=== PATIENT | female | born 1995 | race African-American/Black ===

== ENCOUNTER 2025-04-12 21:39 | Emergency (ER) | payer SELFPAY ==
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
--- NOTE | ~2025-04-12 | US_ITS ---
CLINICAL HISTORY: about 6 weeks preg, quant in the 300 range, ? ecto US OB 1st Trimester transabdominal and transvaginal Comparison: None provided Findings: Small fluid collection is present within the fundal endometrium. Endometrial stripe is thickened up to 3.1 cm. No intrauterine gestational sac identified at this time. Small cyst is in the posterior myometrium measuring up to 7 mm. Isoechoic mass with peripheral vascularity in the left ovary measures 2 x 1.6 x 1.6 cm. Right ovary is 2.3 x 1.6 x 1.4 cm. Left ovary is 3.2 x 3 x 2.9 cm. Free fluid is in the cul-de-sac and bilateral adnexal regions. IMPRESSION: No intrauterine gestational sac identified at this time, consistent with of uncertain location. Recommend close clinical and ultrasound follow-up with monitoring of serial quantitative beta hCG. Trace fluid collection in the fundal endometrial stripe. No yolk sac identified at this time to confirm gestational sac. Isoechoic left ovarian mass, possibly complicated involuting cyst. Recommend attention to this finding on follow-up. Mild free fluid in the adnexal regions and cul-de-sac. This document has been electronically signed by: Henry Alonso MD, PHD on 04/13/2025 03:25:38
[2025-04-12 21:41] VITALS: BP 130/59; PULSE 83; RESP 20; TEMP 36.3; O2SAT 99; BMI 35.3
--- OUTSIDE RECORDS SUMMARY | 2025-04-12 22:02 | XMS_ITS | Clinical Summary ---
Author Organization [facility] Address [address] [address] Phone Care Team Providers Care Afterschool Babysitter Name Role Phone Unknown, Unknown Primary Care Provider Unavai lable Allergies Active Allergy Reactions Criticality Noted Date Comments Ibuprofen Shortness Of Breath, Nausea and/or Vomiting High 12/23/2023 Social History Tobacco Use Types Packs/Day Years Used Date Smoking Tobacco: Never Smokeless Tobacco: Never Tobacco Cessation:Counseling Given: Not Answered Alcohol Use Standard Drinks/Week Comments Not Currently 0 (1 standard drink = 0.6 oz pur e alcohol) Education Answer Date Recorded Are you interested in more education? Not on gomez e 12/23/2023 Are you concerned about learning? Not on file 12/23/2023 No 12/23/2023 No 12/23/2023 Digital Access Answer Date Recorded No 12/23/2023 No 12/23/2023 Reliable internet access at home? Not on file 12/23/2023 Device with a working camera? Not on file Intimate Partner Violence Answer Date R ecorded Are you denied basic needs s uch as food, clothing, or medical care? No 12/23/2023 In the past 12 months have y ou been in a relationship with a person who hurts, threatens, or tries to control you? No 12/23/2023 Are you denied basic needs s uch as food, clothing, or medical care? No 12/23/2023 In the past 12 months have y ou been in a relationship with a person who hurts, threatens, or tries to control you? No 12/23/2023 Comments Unknown Sex and Gender Information Value Date Recorded Sex Assigned at Not on file Legal Sex Female 1:25 AM EDT Gender Identity Not on file Sexual Orientation Not on file Last Filed Vital Signs Vital Sign Reading Time Taken Comments Blood Pressure 95/58 12/23/2023 1:56 PM EDT Pulse 72 12/23/2023 1:56 PM EDT Temperature 36.7 C (98 F) 12/23/2023 4:58 AM EDT Respiratory Rate 18 12/23/2023 1:56 PM EDT Oxygen Saturation 98% 12/23/2023 1:56 PM EDT Inhaled Oxygen Concentration - - Weight - - Height - - Body Mass Index - - Plan of Treatment Health Maintenance Due Date Last Done Comments Adult Td,Tdap Booster 1994 DEPRESSION SCREENING 2006 HEPATITIS C SCREENING 2012 HIV ONE-TIME SCREENING (18-6 5 YEARS) 2012 PAP SMEAR 2015 COVID-19 VACCINE (2023-2 5 season) 2024 SMOKING STATUS SCREENING (On ce After 26 Yrs) Completed 12/23/2023 HEPATITIS A VACCINES Aged Out No long er eligible based on patient's age to complete this topic HIB VACCINES Aged Out No longer eligi ble based on patient's age to complete this topic MENINGOCOCCAL VACCINES (ACWY) Aged Out No longer eligible based on patient's age to complete this topic MENINGOCOCCAL VACCINES (B) Aged Out N o longer eligible based on patient's age to complete this topic PNEUMOCOCCAL VACCINES (0-49 years) Aged Out No longer eligible based on patient's age to complete this topic Medical Devices Not on file Care Teams Afterschool Babysitter Relationship Specialty Start Date End Date Unknown, Unknown, PCP - General 12/22/23 Additional Source Comments The information contained in this document represents components of the legal health record. It is not the complete legal health record.[facility]
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
--- OUTSIDE RECORDS SUMMARY | 2025-04-12 22:02 | XMS_ITS | Encounter Summary ---
Author Organization [facility] Address [address] [address] Phone Care Team Providers Care Child Care Worker Name Role Phone Unknown, Unknown Primary Care Provider Susanne villatoro Encounter Details Date Type Department Care Team (Late st Contact Info) Description 12/23/2023 Procedure [place] [facility] [place] [facility] [address] [place] [address] Social History Tobacco Use Types Packs/Day Years Used Date Smoking Tobacco: Never Smokeless Tobacco: Never Alcohol Use Standard Drinks/Week Comments Not Currently [...] on file Sexual Orientation Not on file documented as of this encounter Plan of Treatment Not on file documented as of this encounter Visit Diagnoses Not on filedocumented in this encounter Care Teams Child Care Worker Relationship Specialty Start Date End Date Unknown, Unknown, PCP - General 12/22/23 documented as of this encounter Additional Source Comments The information contained in this document represents components of the legal health record. It is not the complete legal health record.[facility]
[2025-04-12 22:04] LABS: MANUAL DIFF FLAG NO
[2025-04-12 22:09] LABS: Hematocrit 41.3 % (37.0-47.0); Hemoglobin 14.7 g/dl (12.0-16.0); Imm Gran Abs Auto 0.02 X10*3/uL (0.00-0.03); Imm Gran Pct Auto 0.3 % (0.0-0.4); Lymphocytes Absolute Auto 2.6 X10*3/uL (1.2-4.9); Mean Corpuscular HGB Conc 35.6 g/dl (31.0-35.0); Mean Corpuscular Hemoglobin 30.9 pg (27.0-33.0); Mean Corpuscular Volume 86.9 fL (80.0-98.0); NRBC Abs Auto 0.000 X10*3/uL (0.0-0.012); NRBC Pct Auto 0.0 /100WBC (0.0-0.2); Platelet Count 243 X10*3/uL (160-400); Red Blood Count 4.75 X10*6/uL (4.20-5.50); White Blood Count 6.2 X10*3/uL (4.8-10.8)
[2025-04-12 22:25] LABS: Alanine Aminotransferase 8 U/L (0-31); Albumin Level 3.8 g/dL (3.5-5.0); Alkaline Phosphatase 42 U/L (39-117); Anion Gap 11 (12-20); Aspartate Amino Transferase 24 U/L (5-31); Blood Urea Nitrogen 22 mg/dL (9-16); Calcium 8.7 mg/dL (8.4-10.2); Carbon Dioxide 23 mmol/L (22-29); Chloride 109 mmol/L (96-108); Creatinine Clr Calc Pharmacy 91.4; Estimated Glomerular Filt Rate > 60; Lipase 26 U/L (8-78); Potassium 3.6 mmol/L (3.3-5.1); Sodium 139 mmol/L (135-145); Total Protein 6.0 g/dL (6.5-8.0)
[2025-04-12 22:27] LABS: Troponin-I High Sensitivity < 2.7 ng/L (<3.5-17.0)
[2025-04-12 23:01] LABS: COVID-19 Test Negative (Negative); IDNOW Serial# 58CA691E
[2025-04-12 23:02] LABS: IDNOW Serial# 55D5AD1C; Influenza B2 Negative (Negative)
[2025-04-12 23:49] VITALS: BP 108/63; PULSE 91; RESP 16; TEMP 36.4; O2SAT 100
[2025-04-13 00:34] LABS: Appearance Urine Cloudy; Glucose Urine UA Negative (Negative); PH 5.5 (5.0-9.0); Specific Gravity - Urine >= 1.030 (1.005-1.025); UMIC TRIGGER UA YES
--- NOTE | 2025-04-13 00:41 | ED.GENADULT ---
HPI - General Adult General Chief complaint: Nausea/Vomiting/Diarrhea Stated complaint: headache, abd pain, fever Time Seen by Provider: 04/12/25 23:46 History of Present Illness HPI narrative: Patient is a 29-year-old female presents today with having mild abdominal pain some nausea some generalized malaise. Patient's last menstrual period was about a month and a half ago. Denies any fever chills. Patient twice. There was 1 miscarriage. One live . Patient sexually active denies any vaginal discharge. Patient from home. No coughing or congestion or upper respiratory symptoms. Never had an ectopic . Been having some mild pain for the last 2 days. Related Data Allergies Allergy/AdvReac Type Severity Reaction Status Date / Time ibuprofen Allergy Swelling Verified 04/12/25 21:45 Review of Systems Review of Systems: No fever no chills no cough no congestion Yes all other systems are reviewed and are negative [facility] Past Medical History Attestation statement: The following information was validated with the patient. Social History Social History Unable to assess alcohol history related to: Unknown Advance Directives: No Advance Directives Information Provided: No Do you have a plan to hurt others: No Plan Patient : Yes Physical Exam ED Exam Exam: Appearance: Alert. Oriented X3. No acute distress. Eyes: Pupils equal, round and reactive to light. ENT: Pharynx normal. Neck: Normal inspection. Neck supple. No lymph nodes noted. No crepitus CVS: Normal heart rate and rhythm. Pulses normal. Normal S1 and S2 Respiratory: No respiratory distress. Breath sounds normal. No Wheezing. No rales Abdomen: Soft and nontender. No rigidity. No distention. good BS x4 Skin: Skin warm and dry. Normal skin color. Normal skin turgor. Extremities: No lower extremity edema. Neurovascular intact to all extremities. No Lacerations. No Rash Neuro: Oriented X 3. No motor deficit. No sensory deficit. Moving all extermities. No slurred speech Vital Signs: Vital Signs - 24 hr 04/12/25 21:41 04/12/25 23:49 04/13/25 02:07 Temperature 97.3 F 97.6 F 98.6 F Pulse Rate 83 91 78 Respiratory Rate 20 16 18 Blood Pressure 130/59 L 108/63 92/42 L Pulse Oximetry 99 100 100 Oxygen Delivery Method Room Air Room Air Room Air 04/13/25 04:22 Temperature 98.2 F Pulse Rate 89 Respiratory Rate 16 Blood Pressure 100/59 L Pulse Oximetry 100 Oxygen Delivery Method Room Air BMI result Body Mass Index 35.3 Medications Administered Discontinued Medications Generic Name Dose Route Start Last Admin Trade Name Maurice PRN Reason Stop Dose Admin Acetaminophen 975 mg 04/13/25 02:25 04/13/25 02:37 Acetaminophen 325 Mg Tablet PO 04/13/25 02:26 975 mg ONCE ONE Administration Medical Decision Making Medical Decision Making [facility] Narrative: Patient's quant is 328. Patient in no acute distress. Abdomen is soft. White count is normal. Coffee and electrolytes whole department which are negative. Patient's urine showed no gross signs of infection. COVID flu RSV are negative. Patient quant is in the 300 range have some mild abdominal pain. Will get a ultrasound to check for ectopic . Patient's quant is in the 300s range. Most likely we can not find an intrauterine . Patient will need a repeat quant in 2 days. I received sign-out from my colleague Dr. Kaur the ultrasound shows that an intrauterine was not Seen. Consistent with of uncertain location. Patient states that she has no abdominal pain whatsoever. I discussed the patient with Dr. Crowley from OBGYN. Patient needs serial ultrasounds and HCGs q.48h until it is confirmed that the location of the is confirmed. Patient has already been instructed to return in 48 hours. I discussed the signs and symptoms of an ectopic , patient instructed to return immediately to the emergency room, patient understands and agrees with plan Differential Diagnosis Differential Diagnoses: The differential diagnosis associated with the presentation includes Ectopic versus miscarriage versus early Admission/Observation Consideration of admission/observation: Escalation of care including admission/observation considered Lab Data [facility] Lab Attestation statement: I reviewed the patient's lab results. 04/12/25 21:56 04/12/25 21:56 Labs: Lab Results 04/12/25 04/12/25 04/13/25 Range/Units 21:56 21:59 00:24 WBC 6.2 (4.8-10.8) X10*3/uL RBC 4.75 (4.20-5.50) X10*6/uL Hgb 14.7 (12.0-16.0) g/dl Hct 41.3 (37.0-47.0) % MCV 86.9 (80.0-98.0) fL MCH 30.9 (27.0-33.0) pg MCHC 35.6 H (31.0-35.0) g/dl RDW 12.1 (11.0-16.0) % Plt Count 243 (160-400) X10*3/uL MPV 9.0 L (9.4-12.3) fL Immature Gran % (Auto) 0.3 (0.0-0.4) % Neut % (Auto) 49.8 (45-73) % Lymph % (Auto) 42.6 H (20-40) % [place] % (Auto) 5.8 (2-11) % Eos % (Auto) 1.0 (0-4) % Baso % (Auto) 0.5 (0-2) % Lymph # (Auto) 2.6 (1.2-4.9) X10*3/uL [place] # (Auto) 0.4 (0.1-1.2) X10*3/uL Eos # (Auto) 0.1 (0.0-0.4) X10*3/uL Baso # (Auto) 0.0 (0.0-0.2) X10*3/uL Abs Immat Gran (auto) 0.02 (0.00-0.03) X10*3/uL Absolute Neuts (auto) 3.1 (2.0-8.3) x10*3/uL Absolute Nucleated RBC 0.000 (0.0-0.012) X10*3/uL Nucleated RBC % (auto) 0.0 (0.0-0.2) /100WBC Sodium 139 (135-145) mmol/L Potassium 3.6 (3.3-5.1) mmol/L Chloride 109 H (96-108) mmol/L Carbon Dioxide 23 (22-29) mmol/L Anion Gap 11 L (12-20) BUN 22 H (9-16) mg/dL Creatinine 0.75 (0.5-1.4) mg/dL Estim Creat Clear Calc 91.4 Estimated GFR > 60 Random Glucose 97 (60-115) mg/dL Calcium 8.7 (8.4-10.2) mg/dL Total Bilirubin 1.2 H (0.0-1.0) mg/dL AST 24 (5-31) U/L ALT 8 (0-31) U/L Alkaline Phosphatase 42 (39-117) U/L Troponin I High Sens < 2.7 (<3.5-17.0) ng/L Total Protein 6.0 L (6.5-8.0) g/dL Albumin 3.8 (3.5-5.0) g/dL Lipase 26 (8-78) U/L Beta HCG, Quant 328 mIU/mL Urine Color Yellow Urine Appearance Cloudy Urine pH 5.5 (5.0-9.0) Ur Specific [place] >= 1.030 H (1.005-1.025) Urine Protein Trace (Neg-Trace) mg/dL Urine Glucose (UA) Negative (Negative) mg/dL Urine Ketones 80 (Negative) mg/dL Urine Blood Negative (Negative) Urine Nitrite Negative (Negative) Ur Leukocyte Esterase Trace H (Negative) Urine RBC 0-2 (0-2) /HPF Urine WBC 21-50 H (0-5) /HPF Ur Squamous Epith Cells 11-20 (0-2) /HPF Urine Bacteria 4+ (None Seen) Hyaline Casts 0-2 (0-2) /LPF COVID-19 (TATE) Negative (Negative) COVID-19 Clin Com See Note Influenza Type A (MARITZA) Negative (Negative) Influenza Type B (MARITZA) Negative (Negative) Influenza A & B Note See Note Blood Type 04/13/25 Range/Units 00:55 WBC (4.8-10.8) X10*3/uL RBC (4.20-5.50) X10*6/uL Hgb (12.0-16.0) g/dl Hct (37.0-47.0) % MCV (80.0-98.0) fL MCH (27.0-33.0) pg MCHC (31.0-35.0) g/dl RDW (11.0-16.0) % Plt Count (160-400) X10*3/uL MPV (9.4-12.3) fL Immature Gran % (Auto) (0.0-0.4) % Neut % (Auto) (45-73) % Lymph % (Auto) (20-40) % [place] % (Auto) (2-11) % Eos % (Auto) (0-4) % Baso % (Auto) (0-2) % Lymph # (Auto) (1.2-4.9) X10*3/uL [place] # (Auto) (0.1-1.2) X10*3/uL Eos # (Auto) (0.0-0.4) X10*3/uL Baso # (Auto) (0.0-0.2) X10*3/uL Abs Immat Gran (auto) (0.00-0.03) X10*3/uL Absolute Neuts (auto) (2.0-8.3) x10*3/uL Absolute Nucleated RBC (0.0-0.012) X10*3/uL Nucleated RBC % (auto) (0.0-0.2) /100WBC Sodium (135-145) mmol/L Potassium (3.3-5.1) mmol/L Chloride (96-108) mmol/L Carbon Dioxide (22-29) mmol/L Anion Gap (12-20) BUN (9-16) mg/dL Creatinine (0.5-1.4) mg/dL Estim Creat Clear Calc Estimated GFR Random Glucose (60-115) mg/dL Calcium (8.4-10.2) mg/dL Total Bilirubin (0.0-1.0) mg/dL AST (5-31) U/L ALT (0-31) U/L Alkaline Phosphatase (39-117) U/L Troponin I High Sens (<3.5-17.0) ng/L Total Protein (6.5-8.0) g/dL Albumin (3.5-5.0) g/dL Lipase (8-78) U/L Beta HCG, Quant mIU/mL Urine Color Urine Appearance Urine pH (5.0-9.0) Ur Specific [place] (1.005-1.025) Urine Protein (Neg-Trace) mg/dL Urine Glucose (UA) (Negative) mg/dL Urine Ketones (Negative) mg/dL Urine Blood (Negative) Urine Nitrite (Negative) Ur Leukocyte Esterase (Negative) Urine RBC (0-2) /HPF Urine WBC (0-5) /HPF Ur Squamous Epith Cells (0-2) /HPF Urine Bacteria (None Seen) Hyaline Casts (0-2) /LPF COVID-19 (TATE) (Negative) COVID-19 Clin Com Influenza Type A (MARITZA) (Negative) Influenza Type B (MARITZA) (Negative) Influenza A & B Note Blood Type B Positive Independent Interpretation I performed an independent interpretation of an: Ultrasound Radiology Impression Discussion of test interpretation with radiology: I have reviewed the radiologist's reading. Radiologist Impression: Small fluid collection is present within the fundal endometrium. Endometrial stripe is thickened up to 3.1 cm. No intrauterine gestational sac identified at this time. Small cyst is in the posterior myometrium measuring up to 7 mm. Isoechoic mass with peripheral vascularity in the left ovary measures 2 x 1.6 x 1.6 cm. Right ovary is 2.3 x 1.6 x 1.4 cm. Left ovary is 3.2 x 3 x 2.9 cm. Free fluid is in the cul-de-sac and bilateral adnexal regions. IMPRESSION: No intrauterine gestational sac identified at this time, consistent with of uncertain location. Recommend close clinical and ultrasound follow-up with monitoring of serial quantitative beta hCG. Trace fluid collection in the fundal endometrial stripe. No yolk sac identified at this time to confirm gestational sac. Isoechoic left ovarian mass, possibly complicated involuting cyst. Recommend attention to this finding on follow-up. Mild free fluid in the adnexal regions and cul-de-sac. Critical Care Time Critical Care Time Critical Care Time: Yes Total Critical Care Time: 45 Attestation: I have personally provided critical care time. Time includes review of lab data, radiology results, discussion with consultants, and monitoring for potential decompensation. Intervention performed as documented. Discharge Plan Discharge Clinical Impression: Positive test Patient Disposition: Home, Self-Care Instructions: (ED) Additional Instructions: your ultrasound, we could not see a in your uterus. You will need to return every 48 hours for blood work and ultrasounds until the location of the is confirmed. Risk of ectopic exists. Worsened abdominal pain come back immediately. Please come back to the ED on April 15 for a repeat hormone level and ultrasound. Please follow-up with your primary care physician tomorrow. If you have any worsening or new symptoms, please return to the emergency room or call 911 Referrals: Alissa Kaur MD [Physician, Emergency Medicine] Referral Note: Please come back in 2 days to get a repeat hormone level done. Print Language: Thai
[2025-04-13 02:07] VITALS: BP 92/42; PULSE 78; RESP 18; TEMP 37; O2SAT 100
[2025-04-13 04:22] VITALS: BP 100/59; PULSE 89; RESP 16; TEMP 36.8; O2SAT 100
[2025-04-13 05:41] VITALS: BP 96/60; PULSE 79; RESP 18; TEMP 36.8; O2SAT 100
[2025-04-13 05:52] VITALS: BP 96/60; PULSE 79; RESP 18; TEMP 36.8; O2SAT 100
--- NOTE | 2025-04-13 06:36 | PM.GYNCN ---
PRODUCTION SUPPORT SPECIALIST - CN: HPI Data of Consult Consult date: 04/13/25 Primary Care Provider: None Physician Consult Narrative Narrative: Late entry note I was consulted on Adelita Rodriguez at 04:40 a, the patient is a 29 year old with having mild abdominal pain some nausea some generalized malaise. LMP around 6 weeks ago Denies any fever chills. No pelvic pain no vaginal spotting and or bleeding In the emergency room HCG was 328 Pelvic ultrasound showed the following: Small fluid collection is present within the fundal endometrium. Endometrial stripe is thickened up to 3.1 cm. No intrauterine gestational sac identified at this time. Small cyst is in the posterior myometrium measuring up to 7 mm. Isoechoic mass with peripheral vascularity in the left ovary measures 2 x 1.6 x 1.6 cm. Right ovary is 2.3 x 1.6 x 1.4 cm. Left ovary is 3.2 x 3 x 2.9 cm. Free fluid is in the cul-de-sac and bilateral adnexal regions. IMPRESSION: No intrauterine gestational sac identified at this time, consistent with of uncertain location. Recommend close clinical and ultrasound follow-up with monitoring of serial quantitative beta hCG. Trace fluid collection in the fundal endometrial stripe. No yolk sac identified at this time to confirm gestational sac. Isoechoic left ovarian mass, possibly complicated involuting cyst. Recommend attention to this finding on follow-up. Mild free fluid in the adnexal regions and cul-de-sac. cc:: CC: OB [facility] Social History Social History Unable to assess alcohol history related to: Unknown Meds Allergies Allergy/AdvReac Type Severity Reaction Status Date / Time ibuprofen Allergy Swelling Verified 04/12/25 21:45 PRODUCTION SUPPORT SPECIALIST Physical Exam Vitals Vital signs: Temp Pulse Resp BP Pulse Ox O2 Del Method 98.2 F 79 18 96/60 100 Room Air 04/13/25 05:52 04/13/25 05:52 04/13/25 05:52 04/13/25 05:52 04/13/25 05:52 04/13/25 05:52 BMI result Body Mass Index 35.3 Additional Comments: Reported by Dr. Barriga a soft nontender benign PRODUCTION SUPPORT SPECIALIST - Results Labs 04/12/25 21:56 04/12/25 21:56 Labs: Short CBC 04/12/25 Range/Units 21:56 WBC 6.2 (4.8-10.8) X10*3/uL Hgb 14.7 (12.0-16.0) g/dl Hct 41.3 (37.0-47.0) % Plt Count 243 (160-400) X10*3/uL BMP 04/12/25 21:56 Sodium 139 Potassium 3.6 Chloride 109 H Carbon Dioxide 23 BUN 22 H Creatinine 0.75 Calcium 8.7 Liver Function 04/12/25 Range/Units 21:56 Total Bilirubin 1.2 H (0.0-1.0) mg/dL AST 24 (5-31) U/L ALT 8 (0-31) U/L Alkaline Phosphatase 42 (39-117) U/L Albumin 3.8 (3.5-5.0) g/dL Urine 04/13/25 Range/Units 00:24 Urine Color Yellow Urine Appearance Cloudy Urine pH 5.5 (5.0-9.0) Ur Specific [place] >= 1.030 H (1.005-1.025) Urine Protein Trace (Neg-Trace) mg/dL Urine Glucose (UA) Negative (Negative) mg/dL Assessment and Plan (1) Early stage of : Status: Acute Recommended the following to Dr. Barriga: SAB/ectopic warnings to be given to the patient, the patient is to come back to emergency room in case of pelvic pain spotting or vaginal bleeding and instructions to be given to patient to come back to the emergency room in 48 hours for full repeat evaluation with hCG/ultrasound vitamin tablet p.o. q.d. I spent a total of 20 minutes reviewing the chart, communicating to the emergency room provider and documenting in the medical record.
== END 2025-04-13 05:53 | disposition home or self-care (01) ==
PROVIDERS: Emergency Medicine Emergency Medical Services; Emergency Provider Emergency Medicine
DX: R11.2 Nausea with vomiting, unspecified (principal); R51.9 Headache, unspecified; Z32.01 Encounter for pregnancy test, result positive
CPT/HCPCS: 76801; 76817; 80053; 81001; 83690; 84484; 84702; 85025; 86900; 86901; 87086; 87502; 87635; 93005; 99284; 99285

== ENCOUNTER → 2025-04-12 21:52 | Outpatient (BNV) | payer SELFPAY | PROVIDERS: Emergency Provider Emergency Medicine; Visit Provider Obstetrics & Gynecology | DX: O26.891 Other specified pregnancy related conditions, first trimester (principal); R10.9 Unspecified abdominal pain; Z3A.01 Less than 8 weeks gestation of pregnancy | CPT/HCPCS: 99447 ==

== ENCOUNTER → 2025-04-12 22:39 | Outpatient (BNV) | payer SELFPAY | PROVIDERS: Emergency Provider Emergency Medicine; Visit Provider Internal Medicine Cardiovascular Disease | DX: R10.9 Unspecified abdominal pain (principal); R07.9 Chest pain, unspecified | CPT/HCPCS: 93010 ==

== ENCOUNTER → 2025-04-13 00:34 | Outpatient (BNV) | payer MEDICAID, SELFPAY | PROVIDERS: Emergency Provider Emergency Medicine; Visit Provider General Practice | DX: O26.891 Other specified pregnancy related conditions, first trimester (principal); N83.202 Unspecified ovarian cyst, left side; Z3A.08 8 weeks gestation of pregnancy | CPT/HCPCS: 76801; 76817 ==